=== PATIENT | female | born 1960 | race Caucasian/White ===

== ENCOUNTER 2022-03-04 15:51 | Emergency (ER) | payer OTHER ==
[2022-03-04] MEDS ORDERED: Ketorolac 30 MG/ML SDV IM ONE (22:00)
== END 2022-03-04 23:42 | disposition home or self-care (01) ==
LOC: JP.ED 15:51
DX: S76.302A Unspecified injury of muscle, fascia and tendon of the posterior muscle group at thigh level, left thigh, initial encounter (principal); Z79.899 Other long term (current) drug therapy; W08.XXXA Fall from other furniture, initial encounter; Y92.009 Unspecified place in unspecified non-institutional (private) residence as the place of occurrence of the external cause
CPT/HCPCS: 96372; 99283; J1885